=== PATIENT | male | born 1960 | race Caucasian/White ===

== ENCOUNTER 2020-08-16 13:42 | Emergency (ER) | payer OTHER ==
[~2020-08-16] VITALS: Ht 182.9 cm; Wt 77.0 kg
[2020-08-16] MEDS ORDERED: HYDROCODONE/ACETAMINOPHEN 5/325MG TABLET PO ONE (14:30)
[2020-08-16] MEDS ORDERED: METHOCARBAMOL 500MG TABLET PO SCH (15:11)
[2020-08-16] MEDS ORDERED: KETOROLAC 60MG/2ML VIAL IM ONE (17:15)
[2020-08-16] MEDS ORDERED: IBUP-2029 MT (17:47)
[2020-08-16] MEDS ORDERED: METH-612 MT (17:47)
[2020-08-16 18:05] VITALS: BP 167/98
[2020-08-16] MEDS ORDERED: METHOCARBAMOL 750MG TABLET PO SCH (22:00)
== END 2020-08-16 18:06 | disposition home or self-care (01) ==
LOC: ER 13:42
DX: M54.5 Low back pain (principal); M25.512 Pain in left shoulder; V43.52XA Car driver injured in collision with other type car in traffic accident, initial encounter; Y93.89 Activity, other specified; Y92.411 Interstate highway as the place of occurrence of the external cause
CPT/HCPCS: 71046; 72100; 96372; 99284; J1885